=== PATIENT | female | born 1945 | race Caucasian/White ===

== ENCOUNTER → 2016-04-12 | Outpatient (CLI) | payer OTHER ==
[~2016-04-12] MED LIST: AMLO-114 PO; ATOR-26 PO; LEVO25TA5 PO; LEVO50TA6 PO; METO25TA3 PO; METO25TA56 PO; QUIN40TA PO
[2016-04-12 18:53] LABS: COMPLETE YES; HEMATOCRIT 33.5 % (37-47); HYPOSEGMENTED POLYS 1+; LYMPH ABS # 0.43 K/uL (1.2-3.4); LYMPHOCYTE % 0.9 %; MEAN CELL VOLUME 86.1 fL (80-100); MEAN CORPUSCULAR HEMOGLOBIN 30.1 pg (25-34); MEAN CORPUSCULAR HGB CONC 34.9 g/dl (32-36); MEAN PLATELET VOLUME 10.7 fL (7.4-10.4); META ABS # 0.81 K/uL (0-0); METAMYELOCYTE % 1.7 %; NEUTROPHILS % 97.4 %; PLATELET COUNT 361 K/uL (130-400); RED BLOOD COUNT 3.89 M/uL (4.2-5.4); VACUOLIZATION 1+; WHITE BLOOD COUNT 47.93 K/uL (4.8-10.8)
== END | disposition home or self-care (01) ==
LOC: C.LABMFLN 09:18
PROVIDERS: ATTEND Internal Medicine Hematology & Oncology
DX: C83.30 Diffuse large B-cell lymphoma, unspecified site (principal)

== ENCOUNTER → 2016-04-16 | Outpatient (CLI) | payer OTHER ==
[2016-04-16 14:01] LABS: HEMATOCRIT 36.3 % (37-47); MEAN CELL VOLUME 87.5 fL (80-100); MEAN CORPUSCULAR HEMOGLOBIN 30.1 pg (25-34); MEAN CORPUSCULAR HGB CONC 34.4 g/dl (32-36); MEAN PLATELET VOLUME 11.2 fL (7.4-10.4); PLATELET COUNT 206 K/uL (130-400); RED BLOOD COUNT 4.15 M/uL (4.2-5.4); WHITE BLOOD COUNT 1.58 K/uL (4.8-10.8)
[2016-04-16 14:11] LABS: COMPLETE YES; DOHLE BODIES 2+; EOS % 13.9 %; LYMPH % 32.9 %; LYMPH ABS # 0.52 K/uL (1.2-3.4); MONO % 25.9 %; NEUT % 27.3 %
== END | disposition home or self-care (01) ==
LOC: C.LABMFLN 14:41
PROVIDERS: ATTEND Internal Medicine Hematology & Oncology
DX: C83.31 Diffuse large B-cell lymphoma, lymph nodes of head, face, and neck (principal)

== ENCOUNTER 2016-04-17 09:01 | Day surgery (SDC) | payer OTHER ==
[~2016-04-17] VITALS: Ht 149.9 cm; Wt 53.0 kg
[2016-04-17] MEDS ORDERED: METO25TA56 PO (09:09)
[2016-04-17] MEDS ORDERED: AMLO-114 PO (09:09)
[2016-04-17] MEDS ORDERED: ATOR-26 PO (09:09)
[2016-04-17] MEDS ORDERED: QUIN40TA PO (09:09)
[2016-04-17] MEDS ORDERED: LEVO25TA5 PO (09:09)
[2016-04-17 09:10] VITALS: BP 131/75; PULSE 78; TEMP 36.4; O2SAT 96; Ht 149.9 cm; Wt 53.0 kg
[2016-09-12] MEDS ORDERED: LEVO50TA6 PO (08:45)
[2016-09-12] MEDS ORDERED: METO25TA3 PO (08:45)
== END 2016-04-22 13:52 | disposition home or self-care (01) ==
LOC: C.MTU 09:01
PROVIDERS: ATTEND Internal Medicine Hematology & Oncology
DX: C85.11 Unspecified B-cell lymphoma, lymph nodes of head, face, and neck (principal)

== ENCOUNTER → 2016-06-04 | Outpatient (CLI) | payer OTHER | END | disposition home or self-care (01) | LOC: C.LABMFLN 11:11 | PROVIDERS: ATTEND Physician Assistant | DX: E03.9 Hypothyroidism, unspecified (principal) ==

== ENCOUNTER → 2016-08-14 | Outpatient (CLI) | payer OTHER ==
--- NOTE | 2016-08-14 13:09 | DIAGNOSTIC IMAGING REPORT ---
PET/CT CLINICAL HISTORY: Lymphoma. TECHNIQUE: A PET/CT was performed from the skull base through the upper thighs following intravenous injection of 15.11 mCi of F 18 FDG IV. The injection was performed at 8:00 AM on August 14, 2016 and imaging began at 8:55 AM on August 14, 2016. Unenhanced CT was performed for attenuation correction purposes and anatomic localization. COMPARISON STUDY: None available at time of interpretation. FINDINGS: Head and neck: No suspicious FDG uptake is identified within the neck. There is no cervical lymphadenopathy. Chest: No enlarged thoracic lymph nodes are present. A right subclavian Lrqcht-s-Anuj is in place. There is mild bilateral hilar and subcarinal FDG uptake. No corresponding enlarged lymph nodes are identified on this exam. The SUV max of the right hilum is 3.1. The SUV max for the subcarinal region is 3.3 and the SUV max of the left hilum is 2.5. Heart is mildly enlarged. No suspicious pulmonary nodules are identified although lungs are suboptimally assessed due to respiratory motion. Abdomen and Pelvis: No suspicious FDG uptake is identified within the abdomen or the pelvis. There is no abdominal or pelvic lymphadenopathy. There is mild FDG uptake at the anterior abdominal wall at the level the gastrostomy tube insertion site. This is postprocedural. Note is made of a 1.7 cm cystic lesion within the pancreatic neck. This has no significant FDG uptake. There is no biliary or pancreatic ductal dilatation. Musculoskeletal: No suspicious skeletal uptake is identified. IMPRESSION: 1. No convincing FDG avid lymphadenopathy. 2. Mild bilateral hilar and subcarinal FDG uptake with no corresponding enlarged lymph nodes. This could reflect mild francisco javier or vascular uptake and can be assessed on subsequent exams although is not highly suspicious for lymphoma. 3. 1.7 cm cystic lesion within the pancreatic neck which favors a side branch IPMN. Correlation with prior imaging studies would be beneficial to ensure stability. Electronically signed by: Sreekanth Perez M.D. 08/14/2016 1:08 PM Dictated Date/Time: 08/14/2016 9:52 AM
== END | disposition home or self-care (01) ==
LOC: C.PET 07:42
PROVIDERS: ATTEND Nurse Practitioner Family
DX: C85.11 Unspecified B-cell lymphoma, lymph nodes of head, face, and neck (principal)

== ENCOUNTER → 2016-09-13 | Day surgery (SDC) | payer OTHER ==
[2016-09-12 08:45] VITALS: Ht 152.4 cm; Wt 55.9 kg
[~2016-09-13] VITALS: Ht 152.4 cm; Wt 55.9 kg
[~2016-09-13] MED LIST changes: -LEVO25TA5 PO; -METO25TA56 PO; +SODIUM CHLORIDE 0.9% 500ML 500 ML IV ONE
[2016-09-13 09:55] VITALS: BP 127/64; PULSE 89; TEMP 36.6; O2SAT 98
--- NOTE | 2016-09-13 09:56 | Discharge Instructions ---
Endoscopy Patient Instructions Date / Procedure(s) Performed Sep 13, 2016. Other (PEG Tube removal) Allergy Information Coded Allergies: NO KNOWN DRUG ALLERGIES (Verified Allergy, Unknown, nkda, 09/12/16) Discharge Date / Findings Sep 13, 2016. Successful removal of PEG tube Medication Instructions OK to resume all mediations today as prescribed Reported Home Medications Medications Dose Route/Sig Max Daily Dose Days Date Category Toprol-Xl (Metoprolol Succinate) 25 Mg Tabcr 0.5 Tab PO BID 09/12/16 Reported Levothyroxine Sodium 50 Mcg Tab 1 Tab PO QAM 90 09/12/16 Reported Accupril (Quinapril Hcl) 40 Mg Tab 1 Tab PO QPM 30 04/17/16 Reported Lipitor (Atorvastatin Calcium) 80 Mg Tab 80 Mg PO HS 04/17/16 Reported Norvasc (Amlodipine Besylate) 10 Mg Tab 10 Mg PO QPM 04/17/16 Reported Provider Instructions Avoid bathing/Showering for 24 hours. May Shower after 24 hours. Do not submerge in bath for 48 hours. Following Day: - Return to full activity which may include returning to work/school. Advance diet as tolerated Treatment For Common After Affects For mild abdominal pain, bloating, or excessive gas: - Rest - Eat lightly - Lie on right side Follow-Up Information Follow-up with Kristi TOLEDO as scheduled Anesthesia Information What You Should Know You have had a procedure that required some medicine to reduce anxiety and discomfort. This treatment is called moderate sedation. After receiving the treatment, you may be sleepy, but you will be able to breathe on your own. The effects of the treatment may last for several hours. Follow these instructions along with Activity/Diet recommendations noted above: * Do NOT do anything where dizziness or clumsiness would be dangerous. * Rest quietly at home today, then you can be up and about tomorrow. * Have a responsible person stay with you the rest of today. * You may have had an I.V. today. If so, you may take the dressing off later today. Recommendations Call your doctor if: * Trouble breathing * Continuous vomiting for more than 24 hours * Temperature above 101 degrees * Severe abdominal pain or bloating * Pain not relieved by pain medicine ordered * There is increased drainage or redness from any incision * A large amount of rectal bleeding greater than 2-3 tablespoons. (If you had a polyp/s removed or have hemorrhoids, a small amount of blood - from the rectum is to be expected.) * You have any unanswered questions or concerns. IN THE EVENT OF A SERIOUS EMERGENCY, GO TO THE NEAREST EMERGENCY ROOM Your discharge instructions were prepared by provider Ck Umaña. Patient Instructions Signature Page Aga Hutchins Patient (or Guardian) Signature/Date: I have read and understand the instructions given to me by my caregivers. Caregiver/RN/Doctor Signature/Date: The above-named patient and/or guardian has received patient instructions on this date. + Original Patient Signature Page (only) stays with chart. Please make copy for patient.
--- NOTE | 2016-09-13 09:59 | Endo History and Physical ---
History & Physical Date of Service: Sep 13, 2016. Chief Complaint: Peg tube removal Referring Physician: Kristi Slade History of Present Illness 70 yo CF who presents for PEG Tube removal Past Surgical History Hx Cardiac Surgery: No Hx Internal Defibrillator: No Hx Pacemaker: No Hx Abdominal Surgery: No Hx of Implantable Prosthesis: No Hx Post-Op Nausea and Vomiting: No Hx Cancer Surgery: Yes (THYROID BIOPSY (DX LYMPHOMA)) Hx Thoracic Surgery: No Hx Orthopedic: No Hx Urinary Tract Surgery: No Family History None Social History Smoking Status: Never Smoker Hx Substance Use: No Hx Alcohol Use: Yes (OCCASIONALLY) Allergies Coded Allergies: NO KNOWN DRUG ALLERGIES (Verified Allergy, Unknown, nkda, 09/12/16) Current Medications Reported Home Medications Medications Dose Route/Sig Max Daily Dose Days Date Category Toprol-Xl (Metoprolol Succinate) 25 Mg Tabcr 0.5 Tab PO BID 09/12/16 Reported Levothyroxine Sodium 50 Mcg Tab 1 Tab PO QAM 90 09/12/16 Reported Accupril (Quinapril Hcl) 40 Mg Tab 1 Tab PO QPM 30 04/17/16 Reported Lipitor (Atorvastatin Calcium) 80 Mg Tab 80 Mg PO HS 04/17/16 Reported Norvasc (Amlodipine Besylate) 10 Mg Tab 10 Mg PO QPM 04/17/16 Reported Vital Signs Weight (Kilograms): 55.91 Height (Feet): 5 Height (Inches): 0 Date Time Temp Pulse Resp B/P (MAP) Pulse Ox O2 Delivery O2 Flow Rate FiO2 09/13/16 09:35 36.5 100 20 130/74 (92) 97 Room Air Physical Exam General Appearance: no apparent distress, + pertinent finding (PEG tube in LUQ without erythema, edema or leakage) Assessment and Plan Assessment: 70 yo CF who presents for PEG Tube Removal Plan: Proceed with PEG tube removal
--- NOTE | 2016-09-13 10:42 | Gastroenterology Progress Note ---
Progress Note Date of Service: Sep 13, 2016 Subjective Pt evaluation today including: conversation w/ patient, physical exam 70 yo CF who presents for PEG Tube removal. She states she feels well and does not need PEG tube any longer. She states that she is tolerating PO intake at this time. Review of Systems Abdomen: No pain, No nausea, No vomiting, No diarrhea, No GI bleeding, No dysphagia, No odynophagia Medications Current Inpatient Medications Medications (Trade) Dose Ordered Sig/Mitzi Route Start Time Stop Time Status Last Admin Dose Admin Sodium Chloride 500 ml @ 15 mls/hr Q24H ONCE IV 09/12/16 18:35 09/13/16 18:34 Objective Vital Signs Date Time Temp Pulse Resp B/P (MAP) Pulse Ox O2 Delivery O2 Flow Rate FiO2 09/13/16 09:55 36.6 89 20 127/64 (85) 98 Room Air 09/13/16 09:35 36.5 100 20 130/74 (92) 97 Room Air Physical Exam General Appearance: no apparent distress Abdomen: non tender, soft, + pertinent finding (PEG tube in LUQ without erythema, edema or leakage.) Assessment and Plan Assessment: 70 yo CF who presented for PEG Tube removal. Plan: PEG tube was successfully removed without difficulty. Advance diet as tolerated.
== END | disposition home or self-care (01) ==
LOC: C.GI 09:10
PROVIDERS: ATTEND Internal Medicine
DX: Z43.1 Encounter for attention to gastrostomy (principal); C85.11 Unspecified B-cell lymphoma, lymph nodes of head, face, and neck

== ENCOUNTER → 2016-10-14 | Outpatient (CLI) | payer OTHER ==
[~2016-10-14] MED LIST changes: -SODIUM CHLORIDE 0.9% 500ML 500 ML IV ONE
[2016-10-14 13:55] LABS: CHOLESTEROL/HDL RATIO 3.2; THYROID STIMULATING HORMONE 1.6 uIu/ml (0.300-4.500)
== END | disposition home or self-care (01) ==
LOC: C.LABMFLN 09:15
PROVIDERS: ATTEND Physician Assistant
DX: E03.9 Hypothyroidism, unspecified (principal); E78.5 Hyperlipidemia, unspecified

== ENCOUNTER → 2016-12-06 | Outpatient (CLI) | payer OTHER ==
[2016-12-06 17:59] LABS: ALT/SGPT 29 U/L (12-78); AST/SGOT 20 U/L (15-37); BASO % 0.3 %; BASO ABS # 0.01 K/uL (0-0.2); BLOOD UREA NITROGEN 12 mg/dl (7-18); BUN/CREATININE RATIO 13.7 (10-20); CALCIUM 9.1 mg/dl (8.5-10.1); CARBON DIOXIDE 27 mmol/L (21-32); CHLORIDE 108 mmol/L (98-107); COMPLETE YES; CREATININE 0.85 mg/dl (0.60-1.20); EOS % 1.3 %; GLUCOSE 86 mg/dl (70-99); IG% 0.3 %; LYMPH % 18.3 %; MEAN CELL VOLUME 92.3 fL (80-100); MEAN CORPUSCULAR HEMOGLOBIN 30.5 pg (25-34); MEAN CORPUSCULAR HGB CONC 33.1 g/dl (32-36); MEAN PLATELET VOLUME 10.1 fL (7.4-10.4); MONO % 12.6 %; NEUT % 67.2 %; PLATELET COUNT 237 K/uL (130-400); SODIUM 142 mmol/L (136-145); WHITE BLOOD COUNT 3.82 K/uL (4.8-10.8)
[2016-12-06 18:01] LABS: ALB/GLOB RATIO 1.2 (0.9-2); ALKALINE PHOSPHATASE 104 U/L (45-117)
== END | disposition home or self-care (01) ==
LOC: C.LABMFLN 13:43
PROVIDERS: ATTEND Internal Medicine Hematology & Oncology
DX: C85.11 Unspecified B-cell lymphoma, lymph nodes of head, face, and neck (principal)

== ENCOUNTER → 2017-04-07 | Outpatient (CLI) | payer OTHER ==
[2017-04-07 18:20] LABS: BASO % 0.3 %; BASO ABS # 0.01 K/uL (0-0.2); EOS % 1.6 %; EOS ABS # 0.05 K/uL (0-0.5); HEMATOCRIT 37.4 % (37-47); HEMOGLOBIN 12.8 g/dL (12.0-16.0); LYMPH % 24.1 %; LYMPH ABS # 0.74 K/uL (1.2-3.4); MEAN CELL VOLUME 93.5 fL (80-100); MEAN CORPUSCULAR HGB CONC 34.2 g/dl (32-36); MEAN PLATELET VOLUME 10.6 fL (7.4-10.4); MONO % 10.7 %; MONO ABS # 0.33 K/uL (0.11-0.59); NEUT % 63.3 %; NEUT ABS # 1.94 K/uL (1.4-6.5); PLATELET COUNT 237 K/uL (130-400); RED CELL DISTRIBUTION WIDTH SD 44.5 fL (36.4-46.3); WHITE BLOOD COUNT 3.07 K/uL (4.8-10.8)
[2017-04-07 18:50] LABS: ALBUMIN 3.8 gm/dl (3.4-5.0); ALT/SGPT 29 U/L (12-78); BLOOD UREA NITROGEN 13 mg/dl (7-18); CARBON DIOXIDE 28 mmol/L (21-32); CREATININE 0.95 mg/dl (0.60-1.20); GLUCOSE 85 mg/dl (70-99); SODIUM 138 mmol/L (136-145)
[2017-04-07 18:53] LABS: ALKALINE PHOSPHATASE 113 U/L (45-117); AST/SGOT 21 U/L (15-37)
== END | disposition home or self-care (01) ==
LOC: C.LABMFLN 11:43
PROVIDERS: ATTEND Internal Medicine Hematology & Oncology
DX: C85.11 Unspecified B-cell lymphoma, lymph nodes of head, face, and neck (principal)

== ENCOUNTER → 2017-06-19 | Outpatient (CLI) | payer OTHER ==
[2017-06-19 13:11] LABS: BASO % 0.3 %; BASO ABS # 0.01 K/uL (0-0.2); EOS % 1.9 %; EOS ABS # 0.07 K/uL (0-0.5); HEMATOCRIT 38.4 % (37-47); LYMPH % 22.8 %; LYMPH ABS # 0.85 K/uL (1.2-3.4); MEAN CELL VOLUME 93.7 fL (80-100); MEAN CORPUSCULAR HEMOGLOBIN 31.7 pg (25-34); MEAN CORPUSCULAR HGB CONC 33.9 g/dl (32-36); MEAN PLATELET VOLUME 10.4 fL (7.4-10.4); MONO % 12.6 %; MONO ABS # 0.47 K/uL (0.11-0.59); NEUT % 62.4 %; NEUT ABS # 2.33 K/uL (1.4-6.5); PLATELET COUNT 241 K/uL (130-400); RED CELL DISTRIBUTION WIDTH CV 13.5 % (11.5-14.5); RED CELL DISTRIBUTION WIDTH SD 46.2 fL (36.4-46.3); WHITE BLOOD COUNT 3.73 K/uL (4.8-10.8)
[2017-06-19 13:42] LABS: ALBUMIN 3.6 gm/dl (3.4-5.0); ALT/SGPT 25 U/L (12-78); AST/SGOT 18 U/L (15-37); BLOOD UREA NITROGEN 12 mg/dl (7-18); CALCIUM 8.8 mg/dl (8.5-10.1); CARBON DIOXIDE 29 mmol/L (21-32); CHOLESTEROL 228 mg/dl (0-200); CREATININE 0.96 mg/dl (0.60-1.20); GLUCOSE 94 mg/dl (70-99); POTASSIUM 4.4 mmol/L (3.5-5.1); SODIUM 139 mmol/L (136-145)
[2017-06-19 13:53] LABS: ALKALINE PHOSPHATASE 113 U/L (45-117); LDL CHOLESTEROL CALCULATED 145 mg/dl; TOTAL PROTEIN 7.1 gm/dl (6.4-8.2)
== END | disposition home or self-care (01) ==
LOC: C.LABMFLN 08:21
PROVIDERS: ATTEND Physician Assistant
DX: I10 Essential (primary) hypertension (principal); E78.5 Hyperlipidemia, unspecified; E03.9 Hypothyroidism, unspecified

== ENCOUNTER → 2017-10-03 | Outpatient (CLI) | payer OTHER ==
[~2017-10-03] MED LIST changes: -AMLO-114 PO; +AMLO10TA3 PO
[2017-10-03 17:41] LABS: BASO % 0.2 %; BASO ABS # 0.01 K/uL (0-0.2); EOS % 1.3 %; EOS ABS # 0.06 K/uL (0-0.5); HEMATOCRIT 36.1 % (37-47); HEMOGLOBIN 12.1 g/dL (12.0-16.0); IG# 0.01 K/uL (0.00-0.02); LYMPH % 18.6 %; LYMPH ABS # 0.87 K/uL (1.2-3.4); MEAN CELL VOLUME 92.8 fL (80-100); MEAN CORPUSCULAR HEMOGLOBIN 31.1 pg (25-34); MEAN CORPUSCULAR HGB CONC 33.5 g/dl (32-36); MEAN PLATELET VOLUME 10.5 fL (7.4-10.4); MONO % 8.1 %; MONO ABS # 0.38 K/uL (0.11-0.59); NEUT % 71.6 %; NEUT ABS # 3.35 K/uL (1.4-6.5); PLATELET COUNT 218 K/uL (130-400); RED CELL DISTRIBUTION WIDTH CV 13.5 % (11.5-14.5); RED CELL DISTRIBUTION WIDTH SD 45.8 fL (36.4-46.3); WHITE BLOOD COUNT 4.68 K/uL (4.8-10.8)
[2017-10-03 18:03] LABS: ALBUMIN 3.8 gm/dl (3.4-5.0); ALKALINE PHOSPHATASE 115 U/L (45-117); ALT/SGPT 34 U/L (12-78); AST/SGOT 23 U/L (15-37); BLOOD UREA NITROGEN 21 mg/dl (7-18); CALCIUM 9.1 mg/dl (8.5-10.1); CARBON DIOXIDE 28 mmol/L (21-32); CREATININE 0.97 mg/dl (0.60-1.20); GLUCOSE 91 mg/dl (70-99); POTASSIUM 4.2 mmol/L (3.5-5.1); SODIUM 141 mmol/L (136-145); TOTAL PROTEIN 6.9 gm/dl (6.4-8.2)
== END | disposition home or self-care (01) ==
LOC: C.LABMFLN 13:49
PROVIDERS: ATTEND Internal Medicine Hematology & Oncology
DX: C85.11 Unspecified B-cell lymphoma, lymph nodes of head, face, and neck (principal)

== ENCOUNTER → 2017-10-07 | Outpatient (CLI) | payer OTHER ==
[~2017-10-07] MED LIST changes: +OPTIRAY 320 IV PRN
--- NOTE | 2017-10-07 15:25 | DIAGNOSTIC IMAGING REPORT ---
CT OF THE NECK WITH CONTRAST CLINICAL HISTORY: B-CELL LYMPHOMA DISORDER. COMPARISON STUDY: PET/CT August 14, 2016. TECHNIQUE: Axial images of the neck were obtained following intravenous injection of 93 cc of Optiray 320 IV. FINDINGS: Visualized portions of the brain parenchyma are unremarkable. Major vasculature of the neck is patent. No enlarged cervical lymph nodes are present. Right lobe of the thyroid gland is surgically absent. Epiglottis is normal. No mucosal lesion is identified although these may be occult by CT. There is no suspicious osseous lesion. There is no prevertebral edema. Chest CT will be reported separately. The parotid and submandibular glands are unremarkable. IMPRESSION: 1. No cervical lymphadenopathy. 2. Status post right thyroid lobectomy. Electronically signed by: Sreekanth Perez M.D. 10/07/2017 3:24 PM Dictated Date/Time: 10/07/2017 3:20 PM
--- NOTE | 2017-10-07 15:26 | DIAGNOSTIC IMAGING REPORT ---
CT (CHEST) THORAX WITH CT DOSE: 841.99 mGy.cm HISTORY: Lymphoma B-CELL LYMPHOMA DISORDER TECHNIQUE: Multiaxial CT images of the chest were performed following the intravenous administration of contrast. A dose lowering technique was utilized adhering to the principles of ALARA. COMPARISON: PET scan 08/14/2016 FINDINGS: The lungs are clear. The mediastinal vascular structures are within normal limits. No mediastinal or hilar lymphadenopathy. No pleural effusion or pneumothorax. Limited views of the upper abdomen demonstrate a normal liver and spleen. 1.7 cm cystic nodule mid pancreatic body unchanged from the prior study. IMPRESSION: No significant abnormality identified within the chest. 1.7 cm cystic nodule mid pancreatic body unchanged. The above report was generated using voice recognition software. It may contain grammatical, syntax or spelling errors. Electronically signed by: Martin Gamino M.D. 10/07/2017 3:24 PM Dictated Date/Time: 10/07/2017 3:21 PM
--- NOTE | 2017-10-07 15:30 | DIAGNOSTIC IMAGING REPORT ---
CT OF THE ABDOMEN AND PELVIS WITH CONTRAST CLINICAL HISTORY: B-CELL LYMPHOMA DISORDER. COMPARISON STUDY: PET/CT August 14, 2016. TECHNIQUE: Following IV administration of 93 mL of Optiray-320, axial images of the abdomen and pelvis were obtained from the lung bases to the proximal femurs. Images were reviewed in the axial, sagittal, and coronal planes. IV contrast was administered without complication. A dose lowering technique was utilized adhering to the principles of ALARA. Oral contrast was administered. FINDINGS: Please note that the chest CT will be reported separately. A 7 mm right hepatic lobe cyst is noted. There are no suspicious hepatic lesions. The spleen, adrenal glands, right kidney and pancreas are unremarkable with exception of a 1.7 cm water attenuation pancreatic neck lesion which is similar to PET/CT of August 14, 2016. There is no biliary or pancreatic ductal dilatation. A 5 mm cyst within the lower pole of the left kidney is noted. No enlarged abdominal or pelvic lymph nodes are present. Caliber and wall thickness of small and large bowel are normal. There is no ascites. No suspicious osseous lesion is present. IMPRESSION: 1. No abdominal or pelvic lymphadenopathy. 2. No change in a 1.7 cm cystic pancreatic neck lesion since PET/CT of August 14, 2016 which likely reflects a side branch intraductal papillary mucinous neoplasm. Electronically signed by: Sreekanth Perez M.D. 10/07/2017 3:29 PM Dictated Date/Time: 10/07/2017 3:24 PM
== END | disposition home or self-care (01) ==
LOC: C.CTS 12:50
PROVIDERS: ATTEND Internal Medicine Hematology & Oncology
DX: C85.11 Unspecified B-cell lymphoma, lymph nodes of head, face, and neck (principal); K86.2 Cyst of pancreas; E89.0 Postprocedural hypothyroidism